=== PATIENT | female | born 1995 | race Two or more races ===

== ENCOUNTER 2018-08-13 06:54 | Inpatient (IN) | payer MEDICAID | END 2018-08-15 18:00 | disposition home or self-care (01) | LOC: ER 06:54 → OVERFLOW 20:45 → CENTRAL 22:29 | DX: G92 Toxic encephalopathy (principal); N39.0 Urinary tract infection, site not specified ==

== ENCOUNTER 2018-08-16 17:40 | Emergency (ER) | payer MEDICAID ==
[~2018-08-16] VITALS: Ht 149.9 cm; Wt 49.2 kg
[~2018-08-16 17:40] MED LIST: LEVO500T21 PO
[2018-08-16] MEDS ORDERED: diphenhdrAMINE HCL 50 MG/1 ML VL IM ONE (18:00)
[2018-08-16] MEDS ORDERED: LORazepam 2MG/ML-1ML VIAL IM ONE (18:00)
[2018-08-16] MEDS ORDERED: HALOPERIDOL LACTATE 5 MG/ML INJ VIAL IM ONE (18:00)
[2018-08-16 21:07] LABS: Alcohol, Urine < 3.0 mg/dL (0-5); Amphetamine Screen, Urine POSITIVE (NEGATIVE); Barbiturate Scree,Urine NEGATIVE (NEGATIVE); Benzodiazephine Screen, Urine NEGATIVE (NEGATIVE); Cannabinoid Screen, Urine POSITIVE (NEGATIVE); Cocaine Screen, Urine NEGATIVE (NEGATIVE); Opiate Scree,Urine NEGATIVE (NEGATIVE); Phencyclidine Screen, Urine NEGATIVE (NEGATIVE)
[2018-08-18 16:42] VITALS: BP 127/66
== END 2018-08-18 17:15 | disposition home or self-care (01) ==
LOC: ER 17:45
DX: F29 Unspecified psychosis not due to a substance or known physiological condition (principal); F19.10 Other psychoactive substance abuse, uncomplicated
CPT/HCPCS: 36415; 80307; 80320; 93005; 94761

== ENCOUNTER → 2019-08-09 | Emergency (ER) | payer MEDICAID ==
[~2019-08-09] VITALS: Ht 160 cm; Wt 54.4 kg
[~2019-08-09] MED LIST changes: +LORazepam 2MG/ML-1ML VIAL IV ONE; +SODIUM CHLORIDE 0.9% 1,000 ML IV ONE
[2019-08-09 23:48] LABS: Basophils # (auto) 0.1 10 ^3/uL (0-0.2); Basophils % (auto) 0.7 % (0.0-2.0); Eosinophils # (auto) 0.1 10 ^3/uL (0-0.8); Eosinophils % (auto) 0.9 % (0.0-7.0); Hematocrit 39.4 % (36.0-46.0); Hemoglobin 12.8 g/dL (12.2-16.2); Lymphocytes # (auto) 1.6 10 ^3/uL (0.4-5.4); Mean Corpuscular Hemoglobin 29.7 pg (28.0-32.0); Mean Corpuscular Hgb Conc. 32.6 g/dL (32.0-36.0); Mean Corpuscular Volume 91.1 fL (80.0-100.0); Monocytes # (auto) 0.9 10 ^3/uL (0-1.3); Monocytes % (auto) 9.7 % (0.0-12.0); Neutrophils # (auto) 6.3 10 ^3/uL (1.6-8.6); Neutrophils % (auto) 70.7 % (37.0-80.0); Nucleated Red Blood Cells % 0.1 %; Platelet Count (auto) 294 10^3/uL (140-450); Red Blood Cells 4.32 10^6/uL (4.0-5.20); Red Cell Distribution Width 14.2 % (11.8-14.3); White Blood Cell 8.9 10^3/uL (4.4-10.8)
[2019-08-09 23:58] LABS: Urine Amorphous Crystal FEW /hpf (None Seen); Urine Bacteria FEW /hpf (None Seen); Urine Blood TRACE /uL (Negative); Urine Specific Gravity 1.023 (1.001-1.035); Urine WBC 38 /hpf (0 - 5)
[2019-08-10 00:07] LABS: Albumin 3.5 g/dL (3.4-5.0); Anion Gap 5 (5-15); BUN/Creatinine Ratio 9.9; Blood Alcohol < 3.0 mg/dL (0-5); Blood Urea Nitrogen 9 mg/dL (7-18); Calcium 8.3 mg/dL (8.5-10.1); Carbon Dioxide 28 mmol/L (21-32); Chloride 107 mmol/L (98-107); GFR African American 99 mL/min; GFR Non-African American 82 mL/min; Glucose 99 mg/dL (74-106); Potassium 3.8 mmol/L (3.5-5.1); Salicylate < 1.7 mg/dL (2.8-20.0); Sodium 140 mmol/L (136-145)
[2019-08-10 00:10] LABS: Alanine Aminotransferase 29 U/L (13-56); Alkaline Phosphatase 126 U/L (45-117); Aspartate Aminotransferase 26 U/L (15-37); Bilirubin, Total 0.3 mg/dL (0.2-1.0); Total Protein 7.7 g/dL (6.4-8.2)
[2019-08-10 00:10] LABS: Alcohol, Urine < 3.0 mg/dL (0-5); Amphetamine Screen, Urine POSITIVE (NEGATIVE); Barbiturate Scree,Urine NEGATIVE (NEGATIVE); Benzodiazephine Screen, Urine NEGATIVE (NEGATIVE); Cannabinoid Screen, Urine POSITIVE (NEGATIVE); Cocaine Screen, Urine NEGATIVE (NEGATIVE); Opiate Scree,Urine NEGATIVE (NEGATIVE); Phencyclidine Screen, Urine NEGATIVE (NEGATIVE)
[2019-08-10 00:11] LABS: Acetaminophen < 2.0 ug/mL (10-30)
[2019-08-10 04:00] VITALS: BP 103/67
== END | disposition home or self-care (01) ==
LOC: EDUNIT# 22:54 → EDBD 23:00 → ER 23:03
DX: R45.1 Restlessness and agitation (principal); F15.10 Other stimulant abuse, uncomplicated; R41.0 Disorientation, unspecified; Z79.2 Long term (current) use of antibiotics
CPT/HCPCS: 36415; 80053; 80307; 80320; 80329; 81001; 81025; 85025; 96361; 96374; 99283; J2060; J7030